=== PATIENT | male | born 1985 | race Caucasian/White ===

== ENCOUNTER 2021-10-02 17:52 | Emergency (ER) | payer OTHER ==
[2021-10-02] MEDS ORDERED: IBUPROFEN800 MG PO (19:16)
== END 2021-10-02 19:36 | disposition home or self-care (01) ==
LOC: FER 17:52
DX: G40.909 Epilepsy, unspecified, not intractable, without status epilepticus (principal); L05.91 Pilonidal cyst without abscess; K08.89 Other specified disorders of teeth and supporting structures; F17.210 Nicotine dependence, cigarettes, uncomplicated; Z28.310 Unvaccinated for COVID-19; Z79.899 Other long term (current) drug therapy
CPT/HCPCS: 99283